=== PATIENT | female | born 1965 | race Caucasian/White ===

== ENCOUNTER 2020-07-19 07:04 | Outpatient (CLI) | payer BC, SELFPAY ==
--- NOTE | 2020-07-19 07:14 | MM_ITS ---
WS: [id number] BILATERAL DIGITAL SCREENING MAMMOGRAM WITH CAD CLINICAL INFORMATION: SCREENING HISTORY: Screening mammogram. No current complaints. COMPARISON: September 22, 2017 TECHNIQUE: Bilateral CC and MLO. FINDINGS: The breast are composed of extremely dense tissue, which can limit the detection of small underlying mass lesions. Vascular calcification. A few punctate and clustered calcifications. No suspicious foca l mass, asymmetry, calcifications, or architectural distortion. No evidence of malignancy. MM/[place] [id number] IMPRESSION: BI-RADS: 2-Benign FOLLOW UP: 1 Year Follow-up Recommend return to annual screening mammography.
== END 2020-07-19 07:05 | disposition home or self-care (01) ==
LOC: RADSHAW 07:08
PROVIDERS: PCP Nurse Practitioner Family; Visit Provider Nurse Practitioner Family
DX: Z12.31 Encounter for screening mammogram for malignant neoplasm of breast (principal)
CPT/HCPCS: 77067

== ENCOUNTER 2022-01-15 12:15 | Emergency (ER) | payer BC, SELFPAY ==
[2022-01-15 12:29] VITALS: BP 161/99; PULSE 100; RESP 16; TEMP 37.1; O2SAT 100
[2022-01-15 12:34] VITALS: BP 128/80; PULSE 93; RESP 16; O2SAT 99
--- NOTE | 2022-01-15 12:41 | CTR_ITS ---
PROCEDURE INFORMATION: Exam: CT Head Without Contrast Exam date and time: 01/15/2022 12:47 PM Age: 56 years old Clinical indication: Stroke-like symptoms; Dizziness/giddiness; Left facial droop; Additional info: Symptoms of acute stroke TECHNIQUE: Imaging protocol: Computed tomography of the head without contrast. Radiation optimization: All CT scans at this facility use at least one of these dose optimization techniques: automated exposure control; mA and/or kV adjustment per patient size (includes targeted exams where dose is matched to clinical indication); or iterative reconstruction. Other technique: STROKE PROTOCOL was implemented. COMPARISON: No relevant prior studies available. 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 No acute infarction. No intracranial hemorrhage, no mass. Ventricles: No ventriculomegaly. Paranasal sinuses: Visualized sinuses are unremarkable. No fluid levels. Mastoid air cells: Visualized mastoid air cells are well aerated. Bones/joints: No acute abnormality. No acute fracture. Soft tissues: Unremarkable. Other findings: Left central calibration artifact (series 9, image 30). CT/CT head thrombolytic [id number] IMPRESSION: 1. 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 2. No acute intracranial abnormality identified. ASSESSMENT: ASPECTS ([place] Stroke Program Early CT Score) is 10.
[2022-01-15 12:43] LABS: Glucose Point of Care 82 mg/dL (70-110)
--- NOTE | 2022-01-15 13:04 | ECG_ITS ---
[facility] Test Date: 2022-01-15 Pat Name: Angela Tavarez Department: Room: Gender: Female Upstairs Maid: : 1965 Requested By: Ru Daniels Order Number: [id number] Isaac MD: Prakash Tian M.D. Measurements Intervals [place] Rate: 87 P: 77 MS: 173 QRS: 80 QRSD: 82 T: 61 QT: 372 QTc: 449 Interpretive Statements SINUS RHYTHM Compared to ECG 04/08/2017 16:42:40 No significant changes Electronically Signed On 01-16-2022 11:11:08 DIGITAL MARKETING ANALYST by Prakash Tian M.D. [id number]
[2022-01-15 13:15] LABS: Basophils # 0.1 10^3/uL (0.0-0.1); Basophils % 1.1 %; Eosinophils # 0.1 10^3/uL (0.0-0.8); Eosinophils % 2.3 %; Hematocrit 39.9 % (37.0-47.0); Hemoglobin 13.5 g/dL (11.5-15.3); Lymphocytes # 2.2 10^3/uL (0.8-4.8); Lymphocytes % 38.5 %; Mean Corpuscular HGB Conc 33.8 g/dL (30.0-36.0); Mean Corpuscular Hemoglobin 29.5 pg (28.0-34.0); Mean Corpuscular Volume 87.3 fl (81-99); Mean Platelet Volume 9.9 fL (7.4-10.4); Monocytes # 0.4 10^3/uL (0.2-0.9); Monocytes % 6.5 %; Neutrophils # 2.92 10^3/uL (1.8-7.7); Neutrophils % 51.6 %; Nucleated Red Blood Cells % 0 %; Platelet Count 246 10^3/cmm (130-400); Red Blood Count 4.57 10^6/uL (4.1-5.3); Red Cell Distribution Width 11.9 % (12.1-15.1); White Blood Count 5.7 10^3/uL (4.0-10.0)
--- NOTE | 2022-01-15 13:26 | W.ED.NEUROSD ---
HPI - Neuro Symptoms/Deficit General: Chief Complaint: Neuro Symptoms/Deficit Stated Complaint: High blood pressure, migrain Time Seen by Provider: 01/15/22 12:41 Source: patient Mode of arrival: ambulatory Limitations: no limitations History of Present Illness: 56-year-old female presents emergency room with sudden onset of a sharp headache with some blurry vision in her left eye a stroke alert was called from triage. Patient is also noted elevated blood pressure at home. She had a history of migraines in the past. Initially seen and evaluated the patient in the CT scanner she has no focal neurologic deficits there is no sign of any weakness she is awake alert and oriented. Repeat exam in the trauma bay gives an NIH score of 0 Onset (ago): minute(s) Severity: mild Relieving factors: none Exacerbating factors: none Associated symptoms: Reports headache(s); Deny chest pain, cough, diaphoresis, fevers/chills, anorexia, malaise, nausea, seizures, short of breath, syncope, tingling, vertigo, vomiting or weakness Treatments Prior to Arrival: none Review of Systems Const: Denies: fever(s), chills, fatigue, malaise or diaphoresis Eyes: Reports: change in vision and blurry vision ENMT: Denies: throat pain, ear or mastoid pain, nasal discharge or nasal congestion Card: Denies: chest pain or syncope Resp: Denies: dyspnea, productive cough or non-productive cough GI: Denies: nausea or vomiting : Denies: flank pain, difficulty voiding, dysuria, urinary frequency or urinary urgency Skin/Breast: Denies: rash or pruritus Neuro: Reports: headache(s); Denies: numbness in extremities, weakness in extremities, sensory changes, lack of coordination or vertigo [facility] ED PFSH: Medical History (Updated 01/18/22 @ 06:31 by Ru Cuevas DO) Migraine Social History (Updated 01/18/22 @ 06:31 by Ru Cuevas DO) Smoking and tobacco status: current every day smoker Alcohol intake: current NIH stroke score NIHSS: Level Of Consciousness - 1a: 0 Level Of Consciousness Questions - 1b: Both Correct Level Of Consciousness Commands - 1c: Both Correct Best Gaze - 2: Normal Visual James - 3: No Visual Loss Facial Palsy - 4: Normal Motor Arm Right - 5: No Drift Motor Arm Left - 5: No Drift Motor Leg Right - 6: No Drift Motor Leg Left - 6: No Drift Limb Ataxia - 7: Absent Sensory - 8: Normal Best Language - 9: No Aphasia Dysarthia - 10: Normal Extinction And Inattention - 11: 0 Score: Total Score: 0 Physical Exam Const: COMMON NORMALS: no acute distress GENERAL APPEARANCE: cooperative and comfortable ORIENTATION/CONSCIOUSNESS: Yes awake, Yes oriented to person, Yes oriented to place and Yes oriented to time HENMT: COMMON NORMALS: normocephalic, atraumatic, hearing grossly normal bilaterally, external ears normal, EAC's normal, TM's normal bilaterally, Normal nasal mucous membranes and turbinates present, moist oral mucous membranes and oropharynx normal HEAD & SCALP: normocephalic and atraumatic NOSE: Normal nasal mucous membranes and turbinates present EXTERNAL EAR: Yes external ears normal EXTERNAL AUDITORY CANAL: EAC's normal TYMPANIC MEMBRANE: TM's normal bilaterally Eye: COMMON NORMALS: Equal, round and reactive pupils present, EOMs intact bilaterally, conjunctivae normal and no scleral icterus CONJUNCTIVA: Yes conjunctivae normal PUPIL: Yes Equal, round and reactive pupils present Neck/C-Spine: COMMON NORMALS: full ROM, no lymphadenopathy, supple and no JVD Lymph: LYMPHATIC: no lymphadenopathy noted and no lymphedema noted Resp: COMMON NORMALS: normal respiratory effort, No retractions, No use of accessory muscles and clear to auscultation bilaterally AUSCULTATION: clear to auscultation bilaterally Cardio: COMMON NORMALS: no JVD, regular rate, regular rhythm and No murmurs present (Cardio) RATE: regular rate RHYTHM: regular rhythm GI: COMMON NORMALS: Soft to palpation and No hepatosplenomegaly present AUSCULTATION: Yes normoactive bowel sounds PALPATION: Yes Soft to palpation, No Tenderness to palpation present (GI), No Guarding due to palpation present (GI) and Yes No hepatosplenomegaly present Extremity: COMMON NORMALS: normal to inspection, capillary refill normal, no clubbing, cyanosis or edema, no calf tenderness and no pedal edema Neuro: SENSORIUM/ORIENTATION: Yes oriented to person, Yes oriented to place and Yes oriented to time Skin: COMMON NORMALS: no rashes or lesions noted GENERAL SKIN EXAM: no rashes or lesions noted Course Vital Signs: Vital signs: Vital Signs Temperature 98.7 F 01/15/22 12:29 Pulse Rate 86 01/15/22 14:40 Respiratory Rate 17 01/15/22 14:40 Blood Pressure 119/76 01/15/22 14:40 Pulse Oximetry 96 01/15/22 14:40 Oxygen Delivery Me thod 01/15/22 12:29 MDM - Neuro Symptoms/Deficit Medical Decision Making Patient initially presented with headache with some blurred vision in her left eye. Triage nurse called a stroke alert when examined the patient she has no focal neurologic deficits she is essentially a migraine variant blood pressure was elevated when this initially presented to do an NIH score and a CT of her head. She denied any trauma. She is already feeling somewhat better symptoms have improved. There is no signs that she had a significant stroke. Did recommend that she follow-up with primary care doctor to monitor blood pressure. Reviewed findings with the patient all questions answered. Medical Records I reviewed the patient's medical records. Lab Data I reviewed the patient's lab results. 01/15/22 13:10 01/15/22 13:[address] 01/15/22 12:41 IMPRESSION: 1. 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 2. No acute intracranial abnormality identified. ASSESSMENT: ASPECTS ([place] Stroke Program Early CT Score) is 10. ADDENDUM: 01/15/22 1300 THIS REPORT CONTAINS FINDINGS THAT MAY BE CRITICAL TO PATIENT CARE. The findings were verbally communicated by me to DR. RU CUEVAS via telephone conference at 1:02 PM PRODUCTION DEPARTMENT SUPERVISOR on 01/15/2022. The findings were acknowledged and understood. Laboratory Results WBC 5.7 10^3/uL (4.0-10.0) 01/15/22 13:10 RBC 4.57 10^6/uL (4.1-5.3) 01/15/22 13:10 Hgb 13.5 g/dL (11.5-15.3) 01/15/22 13:10 Hct 39.9 % (37.0-47.0) 01/15/22 13:10 MCV 87.3 fl (81-99) 01/15/22 13:10 MCH 29.5 pg (28.0-34.0) 01/15/22 13:10 MCHC 33.8 g/dL (30.0-36.0) 01/15/22 13:10 RDW 11.9 % (12.1-15.1) L 01/15/22 13:10 Plt Count 246 10^3/cmm (130-400) 01/15/22 13:10 MPV 9.9 fL (7.4-10.4) 01/15/22 13:10 Neut % (Auto) 51.6 % 01/15/22 13:10 Lymph % (Auto) 38.5 % 01/15/22 13:10 [place] % (Auto) 6.5 % 01/15/22 13:10 Eos % (Auto) 2.3 % 01/15/22 13:10 Baso % (Auto) 1.1 % 01/15/22 13:10 Neut # (Auto) 2.92 10^3/uL (1.8-7.7) 01/15/22 13:10 Lymph # (Auto) 2.2 10^3/uL (0.8-4.8) 01/15/22 13:10 [place] # (Auto) 0.4 10^3/uL (0.2-0.9) 01/15/22 13:10 Eos # (Auto) 0.1 10^3/uL (0.0-0.8) 01/15/22 13:10 Baso # (Auto) 0.1 10^3/uL (0.0-0.1) 01/15/22 13:10 Nucleated RBC % (auto) 0 % 01/15/22 13:10 Nucleated RBCs # 0.0 /100WBC 01/15/22 13:10 PT 13.40 SECONDS (12.1-14.9) 01/15/22 13:10 INR 0.99 (0.8-1.2) 01/15/22 13:10 APTT 26.4 SECONDS (23.9-36.7) 01/15/22 13:10 Sodium 129 mmol/L (136-145) L 01/15/22 13:10 Potassium 3.6 mmol/L (3.5-5.1) 01/15/22 13:10 Chloride 92 mmol/L (98-107) L 01/15/22 13:10 Carbon Dioxide 24 mmol/L (22-29) 01/15/22 13:10 Anion Gap 16.6 (5-19) 01/15/22 13:10 BUN 7 mg/dL (6-20) 01/15/22 13:10 Creatinine 0.7 mg/dL (0.5-0.9) 01/15/22 13:10 GFR Calculation 85.9 mL/min (90-130) L 01/15/22 13:10 Glucose 102 mg/dL (65-115) 01/15/22 13:10 POC Glucose 82 mg/dL (70-110) 01/15/22 12:39 Calculated Osmolality 266 mOsm/kg (285-295) L 01/15/22 13:10 Calcium 9.1 mg/dL (8.5-10.5) 01/15/22 13:10 Total Bilirubin 0.4 mg/dL (0.15-1.2) 01/15/22 13:10 AST 19 U/L (0-32) 01/15/22 13:10 ALT 11 U/L (0-33) 01/15/22 13:10 Alkaline Phosphatase 42 U/L (35-105) 01/15/22 13:10 Total Protein 6.6 g/dL (6.6-8.7) 01/15/22 13:10 Albumin 4.2 g/dL (3.5-5.2) 01/15/22 13:10 Globulin 2.4 g/dL (1.3-4.6) 01/15/22 13:10 Urine Color Straw (Yellow) 01/15/22 14:27 Urine Appearance Clear (CLEAR) 01/15/22 14:27 Urine pH 6 (5-7) 01/15/22 14:27 Ur Specific [place] 1.005 (1.005-1.030) 01/15/22 14:27 Urine Protein Neg (Negative) 01/15/22 14:27 Urine Glucose (UA) Norm (Normal) 01/15/22 14:27 Urine Ketones Negative (Negative) 01/15/22 14:27 Urine Blood Neg (Negative) 01/15/22 14:27 Urine Nitrate Negative (Negative) 01/15/22 14:27 Urine Bilirubin Neg (Negative) 01/15/22 14:27 Urine Urobilinogen Neg mg/dL (Negative) 01/15/22 14:27 Ur Leukocyte Esterase Negative (Negative) 01/15/22 14: Urine Opiates Screen Negative ng/mL (Negative) 01/15/22 14:27 Ur Barbiturates Screen Negative ng/mL (Negative) 01/15/22 14:27 Ur Phencyclidine Scrn Negative ng/mL (Negative) 01/15/22 14:27 Ur Amphetamines Screen Negative ng/mL (Negative) 01/15/22 14:27 U Benzodiazepines Scrn Negative ng/mL (Negative) 01/15/22 14:27 Urine Cocaine Screen Negative ng/mL (Negative) 01/15/22 14:27 U Marijuana (THC) Screen Negative ng/mL (Negative) 01/15/22 14:27 Discharge Plan Discharge Patient Disposition: Home Clinical Impression: Migraine variant Condition: Stable Prescriptions: No Action alprazolam 0.5 mg tablet 0.5 mg PO TID PRN (Reason: Anxiety) trazodone 100 mg tablet 100 mg PO BEDTIME ibuprofen 200 mg Tablet 600 mg PO Q6H PRN (Reason: Pain) Excedrin Migraine 250-250-65 mg Tablet 2 tab PO Q6H PRN (Reason: Migraine Headache) turmeric-turmeric ext-pepper 500-3 mg Capsule 1 cap PO BID Discharge Orders: Discharge ED (Routine); Ordered 01/15/22 Ordered By: Ru Cuevas Referrals: Sarah Alvarado FNP [Primary Care Provider] - Discharge Diet: Usual diet Discharge Activity: Increase activity as tolerated Patient Instructions: Opioid Safety, Pain Management Activity Restrictions/Additional Instructions: Follow-up with your primary care within the next week. Coding Level of Care Code ED Cell Attendant for Leilani Mcneal
[2022-01-15 13:46] LABS: INR 0.99 (0.8-1.2)
[2022-01-15 13:47] LABS: Partial Thromboplastin Time 26.4 SECONDS (23.9-36.7)
[2022-01-15] MEDS: promethazine 25 mg/mL SDV 1 mL IM (13:51)
[2022-01-15] MEDS: ketorolac 30 mg/mL INJ IVP (13:51)
[2022-01-15 13:54] LABS: Alanine Aminotransferase 11 U/L (0-33); Albumin Level 4.2 g/dL (3.5-5.2); Alkaline Phosphatase 42 U/L (35-105); Anion Gap 16.6 (5-19); Aspartate Amino Transferase 19 U/L (0-32); Blood Urea Nitrogen 7 mg/dL (6-20); Calcium 9.1 mg/dL (8.5-10.5); Carbon Dioxide 24 mmol/L (22-29); Chloride 92 mmol/L (98-107); Globulin 2.4 g/dL (1.3-4.6); Glomerular Filtration Rate 85.9 mL/min (90-130); Glucose 102 mg/dL (65-115); Osmolality Calculated 266 mOsm/kg (285-295); Potassium 3.6 mmol/L (3.5-5.1); Sodium 129 mmol/L (136-145); Total Bilirubin 0.4 mg/dL (0.15-1.2); Total Protein 6.6 g/dL (6.6-8.7)
--- NOTE | 2022-01-15 14:35 | PC.NURSE ---
PT PLACED ON CONTINUOUS NIBP, SPO2, AND CM
[2022-01-15 14:36] LABS: Add Urine Microscopic? NO; Charge for UA Resulting for Rev
[2022-01-15 14:40] VITALS: BP 119/76; PULSE 86; RESP 17; O2SAT 96
[2022-01-15 14:51] LABS: Amphetamines Screen Urine Negative (Negative); Barbiturates Screen Urine Negative (Negative); Benzodiazepines Screen Urine Negative (Negative); Cocaine Screen Urine Negative (Negative); Opiate Screen Urine Negative (Negative); PCP Screen Urine Negative (Negative); THC Screen Urine Negative (Negative)
[2022-01-15 14:53] LABS: Bilirubin Urine Neg (Negative); Blood Urine Neg (Negative); Glucose Urine UA Norm (Normal); Ketones Urine Negative (Negative); Leukocyte Esterase Urine Negative (Negative); Nitrate Urine Negative (Negative); Protein Urine Neg (Negative); Specific Gravity, Urine 1.005 (1.005-1.030); Urine Appearance Clear (CLEAR); Urine Color Straw (Yellow); Urobilinogen Urine Neg (Negative); pH Urine 6 (5-7)
== END 2022-01-15 16:04 | disposition home or self-care (01) ==
PROVIDERS: Emergency Provider Family Medicine; PCP Nurse Practitioner Family
DX: G43.809 Other migraine, not intractable, without status migrainosus (principal); G93.89 Other specified disorders of brain; F17.210 Nicotine dependence, cigarettes, uncomplicated
CPT/HCPCS: 36416; 70450; 80053; 80306; 81003; 82962; 85025; 85610; 85730; 93005; 96372; 96374; 99285; J1885; J2550

== ENCOUNTER 2024-06-27 12:29 | Outpatient (CLI) | payer BC, SELFPAY ==
--- NOTE | 2024-06-27 | MM_ITS ---
WS: [id number] BILATERAL 3D TOMOSYNTHESIS DIGITAL SCREENING MAMMOGRAPHY WITH CAD CLINICAL INFORMATION: ANNUAL SCREENING HISTORY: Screening mammogram. No current complaints. COMPARISON: 2020 TECHNIQUE: Bilateral CC and MLO views. FINDINGS: The breasts are composed of heterogeneous fibroglandular density tissue, which can limit the detection of small underlying mass lesions. No suspicious mass, asymmetry, calcifications, or architectural distortion. No evidence of malignancy. [place] centered calcification RIGHT breast. MM/MM [facility] tomosynthesis [id number] IMPRESSION: DENSITY: The breasts are heterogeneously dense, which may obscure small masses. BI-RADS: 2 - Benign FOLLOW UP: 1 Year Follow-up Recommend return to annual screening mammography.
== END 2024-06-27 12:30 | disposition home or self-care (01) ==
PROVIDERS: PCP Nurse Practitioner Family; Visit Provider Nurse Practitioner Family
DX: Z12.31 Encounter for screening mammogram for malignant neoplasm of breast (principal); R92.333 Mammographic heterogeneous density, bilateral breasts; R92.1 Mammographic calcification found on diagnostic imaging of breast
CPT/HCPCS: 77063; 77067

== ENCOUNTER → 2025-01-17 11:15 | Outpatient (BNVA) | payer BC, SELFPAY | PROVIDERS: PCP Nurse Practitioner Family; Visit Provider Internal Medicine Rheumatology | DX: M25.50 Pain in unspecified joint (principal) | CPT/HCPCS: 36415; 80053; 85025 ==